=== PATIENT | male | born 1950 | race Caucasian/White ===

== ENCOUNTER 2016-11-08 12:00 | Day surgery (SDC) | payer MEDICARE, BC ==
[~2016-11-08 12:00] MED LIST: ALBUTEROL1.25 MG/3 INH; ASPIRIN81 MG PO; BREO ELLIPTA 11 EACH INH; BYSTOLIC10 MG PO; CENTRUM SILVER1 EAC1 PO; DOXYCYCLINE HY100 M2 PO; FLEXERIL10 MG PO; GUAIFEN-CODEIN118 ML PO; HYDROCODON-ACE1 EAC2 PO; LINZESS145 MCG PO; MIRALAX17 GM PO; MUCINEX600 MG PO; NEURONTIN600 MG PO; PREDNISONE20 MG PO; SPIRIVA18 MCG INH; VENTOLIN HFA18 GM INH; ZOCOR40 MG PO
== END 2016-11-08 13:24 | disposition short-term general hospital (02) ==
LOC: SURGOP 12:00 → INF/INJ 15:44 → SURGOP 15:56
PROC: 3E0U3BZ Introduction of Anesthetic Agent into Joints, Percutaneous Approach (ICD-10-PCS; principal; 2016-11-08)
PROC: 3E0U33Z Introduction of Anti-inflammatory into Joints, Percutaneous Approach (ICD-10-PCS; 2016-11-08)
PROC: BR16ZZZ Fluoroscopy of Lumbar Facet Joint(s) (ICD-10-PCS; 2016-11-08)
DX: M47.816 Spondylosis without myelopathy or radiculopathy, lumbar region (principal); M19.90 Unspecified osteoarthritis, unspecified site; M48.06 Spinal stenosis, lumbar region
CPT/HCPCS: J1040

== ENCOUNTER → 2016-12-06 | Outpatient (CLI) | payer MEDICARE, BC | END | disposition short-term general hospital (02) | LOC: CLPAIN 12:01 | DX: M47.26 Other spondylosis with radiculopathy, lumbar region (principal); M48.06 Spinal stenosis, lumbar region ==

== ENCOUNTER 2017-01-10 12:16 | Day surgery (SDC) | payer MEDICARE, BC | END 2017-01-10 13:48 | disposition short-term general hospital (02) | LOC: SURGOP 12:16 | PROC: 3E0T3BZ Introduction of Anesthetic Agent into Peripheral Nerves and Plexi, Percutaneous Approach (ICD-10-PCS; principal; 2017-01-10) | PROC: BR16ZZZ Fluoroscopy of Lumbar Facet Joint(s) (ICD-10-PCS; 2017-01-10) | DX: M47.816 Spondylosis without myelopathy or radiculopathy, lumbar region (principal) | CPT/HCPCS: J1040 ==

== ENCOUNTER 2017-02-07 10:58 | Day surgery (SDC) | payer MEDICARE, BC ==
[~2017-02-07] VITALS: Ht 182.9 cm; Wt 136.1 kg
== END 2017-02-07 14:58 | disposition short-term general hospital (02) ==
LOC: SURGOP 10:58
PROC: 3E0T3TZ Introduction of Destructive Agent into Peripheral Nerves and Plexi, Percutaneous Approach (ICD-10-PCS; principal; 2017-02-07)
PROC: BR16YZZ Fluoroscopy of Lumbar Facet Joint(s) using Other Contrast (ICD-10-PCS; 2017-02-07)
DX: M47.816 Spondylosis without myelopathy or radiculopathy, lumbar region (principal); I10 Essential (primary) hypertension; I73.9 Peripheral vascular disease, unspecified; M19.90 Unspecified osteoarthritis, unspecified site; E66.9 Obesity, unspecified; F17.210 Nicotine dependence, cigarettes, uncomplicated; Z68.41 Body mass index [BMI] 40.0-44.9, adult; Z79.82 Long term (current) use of aspirin; Z79.899 Other long term (current) drug therapy
CPT/HCPCS: J1040; J2250; J3010